=== PATIENT | female | born 1950 | race Caucasian/White ===

== ENCOUNTER 2020-04-02 12:25 | Outpatient (CLI) | payer MEDICARE, OTHER ==
[2020-04-02] VITALS (18 sets, daily range): BP systolic 87–132; BP diastolic 51–82
== END 2020-04-02 23:59 | disposition home or self-care (01) ==
LOC: CARD DIAG 12:25
PROVIDERS: ATTEND Internal Medicine Cardiovascular Disease
DX: R42 Dizziness and giddiness (principal)
CPT/HCPCS: 93660